=== PATIENT | male | born 1980 | race Caucasian/White ===

== ENCOUNTER 2017-09-18 15:02 | Emergency (ER) | payer SELFPAY ==
[2017-09-18] MEDS ORDERED: ONDANSETRON 4 MG TAB.RAPDIS PO ONE (15:39)
--- NOTE | 2017-09-18 15:43 | ER Document Report ---
ED Medical Screen (RME) - General Chief Complaint: Pain All Over Stated Complaint: VOMITING/PAIN Time Seen by Provider: 09/18/17 15:37 Mode of Arrival: Ambulatory Information source: Patient Notes: Pt is a 37 year old male who presents to the ER today for fatigue, nausea, diarrhea, and a "blood infection." Pt states that he has a belly button infection. He states that he just "can't handle it anymore." He thinks this all started with a dental infection. Pt is a poor historian and doesn't answer questions directly. TRAVEL OUTSIDE OF THE [place] IN LAST 30 DAYS: No - Related Data Allergies/Adverse Reactions: No Known Allergies Allergy (Verified 09/18/17 15:09) Past Medical History - General Information source: Patient Review of Systems - Review of Systems Gastrointestinal: See HPI Physical Exam - Vital signs Vitals: Temp Pulse Resp BP Pulse Ox 99.4 F 106 H 20 146/89 H 95 09/18/17 15:12 09/18/17 15:12 09/18/17 15:12 09/18/17 15:12 09/18/17 15:12 - Notes Notes: General: disheveled, fatigued appearing Course - Vital Signs Vital signs: Temp Pulse Resp BP Pulse Ox 99.4 F 106 H 20 146/89 H 95 09/18/17 15:12 09/18/17 15:12 09/18/17 15:12 09/18/17 15:12 09/18/17 15:12
[2017-09-18 17:44] LABS: ABSOLUTE BASOPHILS # (AUTO) 0.1 10^3/uL (0.0-0.2); ABSOLUTE LYMPHOCYTES (AUTO) 1.7 10^3/uL (0.5-4.7); ABSOLUTE MONOCYTES (AUTO) 1.1 10^3/uL (0.1-1.4); ABSOLUTE NEUT (AUTO) 13.1 10^3/uL (1.7-8.2); BASOPHILS % (AUTO) 0.3 % (0-2); EOSINOPHILS % (AUTO) 0.2 % (0-6); HEMATOCRIT 45.9 % (37.9-51.0); LYMPHOCYTES % (AUTO) 10.5 % (13-45); MEAN CORPUSCULAR HEMOGLOBIN 30.6 pg (27.0-33.4); MEAN CORPUSCULAR HGB CONC 34.8 g/dL (32.0-36.0); MEAN CORPUSCULAR VOLUME 88 fl (80-97); MONOCYTES % (AUTO) 7.1 % (3-13); PLATELET COUNT 207 10^3/uL (150-450); RED BLOOD COUNT 5.21 10^6/uL (4.35-5.55); SEGMENTED NEUTROPHILS % (AUTO) 81.9 % (42-78); TOTAL CELLS COUNTED % (AUTO) 100 %
[2017-09-18 17:55] LABS: ALANINE AMINOTRANSFERASE 33 U/L (21-72); ALBUMIN 4.5 g/dL (3.5-5.0); ALKALINE PHOSPHATASE 79 U/L (38-126); ANION GAP 15 (5-19); ASPARTATE AMINO TRANSFERASE 24 U/L (17-59); BILIRUBIN,DIRECT 0.4 mg/dL (0.0-0.4); BILIRUBIN,TOTAL 1.2 mg/dL (0.2-1.3); BLOOD UREA NITROGEN 14 mg/dL (7-20); CALCIUM 9.9 mg/dL (8.4-10.2); CARBON DIOXIDE 25 mmol/L (22-30); CHLORIDE 99 mmol/L (98-107); GLUCOSE 84 mg/dL (75-110); POTASSIUM 4.6 mmol/L (3.6-5.0); SODIUM 138.7 mmol/L (137-145); TOTAL PROTEIN 7.6 g/dL (6.3-8.2)
[2017-09-18] MEDS ORDERED: KETOROLAC TROMETHAMINE 60 MG/2 ML SDV IM ONE (18:46)
--- NOTE | 2017-09-18 18:55 | ER Document Report ---
ED General - General Chief Complaint: Pain All Over Stated Complaint: VOMITING/PAIN Time Seen by Provider: 09/18/17 15:37 Mode of Arrival: Ambulatory Information source: Patient Notes: 37-year-old male presents emergency department with multiple complaints. Patient states that he is having rhinorrhea, dry cough, nausea, vomiting, diarrhea, myalgias. He denies a history of sick contacts. Patient denies any medical problems. Patient also stating that he is cleaning some lint out of his bellybutton and noticed some blood. He thinks that his umbilicus is infected. Patient appears very disheveled in the emergency department. Patient denies any drug or alcohol use. TRAVEL OUTSIDE OF THE [place] IN LAST 30 DAYS: No - HPI Patient complains to provider of: rhinorrhea, cough, nausea, vomiting, diarrhea , myalgias Onset: This morning Onset/Duration: Gradual Quality of pain: Achy Severity: Mild Pain Level: 1 Associated symptoms: Chills Exacerbated by: Denies Relieved by: Denies Similar symptoms previously: No Recently seen / treated by doctor: No - Related Data Allergies/Adverse Reactions: No Known Allergies Allergy (Verified 09/18/17 15:09) Past Medical History - General Information source: Patient - Social History Smoking Status: Current Every Day Smoker Family History: Reviewed & Not Pertinent Review of Systems - Review of Systems Constitutional: Chills, Malaise EENT: Nose congestion, Nose discharge Cardiovascular: No symptoms reported Respiratory: Cough Gastrointestinal: Diarrhea, Nausea, Vomiting Genitourinary: No symptoms reported Musculoskeletal: No symptoms reported Skin: No symptoms reported Neurological/Psychological: No symptoms reported -: Yes All other systems reviewed and negative Physical Exam - Vital signs Vitals: Temp Pulse Resp BP Pulse Ox 99.4 F 106 H 20 146/89 H 95 09/18/17 15:12 09/18/17 15:12 09/18/17 15:12 09/18/17 15:12 09/18/17 15:12 Interpretation: Tachycardic - Notes Notes: PHYSICAL EXAMINATION: GENERAL: Well-appearing, well-nourished and in no acute distress. HEAD: Atraumatic, normocephalic. EYES: Pupils equal round and reactive to light, extraocular movements intact, sclera anicteric, conjunctiva are normal. ENT: Nares patent, oropharynx clear without exudates. Moist mucous membranes. NECK: Normal range of motion, supple without lymphadenopathy LUNGS: Breath sounds clear to auscultation bilaterally and equal. No wheezes rales or rhonchi. HEART: Regular rate and rhythm without murmurs ABDOMEN: Soft, nontender, nondistended abdomen. No guarding, no rebound. No masses appreciated. No blood appreciated in the umbilicus. No erythema, warmth , pain to the umbilicus area. Musculoskeletal: Normal range of motion, no pitting or edema. No cyanosis. NEUROLOGICAL: Cranial nerves grossly intact. Normal speech, normal gait. Normal sensory, motor exams PSYCH: Normal mood, normal affect. SKIN: Warm, Dry, normal turgor, no rashes or lesions noted. Course - Re-evaluation Re-evalutation: 09/18/17 21:14 Patient given toradol and zofran for his symptoms. Labs and imaging obtained. WBC is elevated. abd series is nomral. UA is significant for amphetamines, cocaine, marijuana. With all of the patient's symptoms, he likely has a viral illness. I will discharge him home with a prescription for zofran. Patient told to take the medication as directed, to follow up with his PCP this week, and to return for worsening symptoms. - Vital Signs Vital signs: Temp Pulse Resp BP Pulse Ox 99.4 F 106 H 20 146/89 H 95 09/18/17 15:12 09/18/17 15:12 09/18/17 15:12 09/18/17 15:12 09/18/17 15:12 - Laboratory Result Diagrams: 09/18/17 17:01 09/18/17 17:01 Laboratory results interpreted by me: 09/18/17 09/18/17 17:01 17:20 WBC 16.0 H Seg Neutrophils % 81.9 H Lymphocytes % 10.5 L Absolute Neutrophils 13.1 H Urine Protein 30 H Urine Urobilinogen 4.0 H - Diagnostic Test Radiology reviewed: Image reviewed, Reports reviewed Discharge - Discharge Clinical Impression: Viral illness, Drug abuse Condition: Stable Disposition: HOME, SELF-CARE Instructions: Viral Syndrome ([facility]) Prescriptions: Ondansetron [Zofran Odt 4 mg Tablet] 1 - 2 tab PO Q4H PRN #15 tab.rapdis PRN Reason: For Nausea/Vomiting Referrals: ESCOBAR DEAN MD [ACTIVE STAFF] - Follow up as needed
--- NOTE | 2017-09-18 19:26 | RADIOLOGY REPORT (SQ) ---
EXAM DESCRIPTION: ACUTE ABDOMEN SERIES COMPLETED DATE/TIME: 09/18/2017 7:04 pm REASON FOR STUDY: abdominal pain COMPARISON: None. NUMBER OF VIEWS: Three views. TECHNIQUE: Frontal chest, supine abdomen and upright/decubitus abdomen radiographic images acquired. LIMITATIONS: None. FINDINGS: CHEST: Lungs clear of infiltrates. FREE AIR: None. No abnormal gas collections. BOWEL GAS PATTERN: Nonobstructive pattern. No dilated loops or air fluid levels. CALCIFICATIONS: No suspicious calcifications. HARDWARE: None in the abdomen. SOFT TISSUES: No gross mass or suggestion of organomegaly. BONES: No acute fracture. No worrisome bone lesions. OTHER: No other significant finding. IMPRESSION: Nonobstructive pattern. TECHNICAL DOCUMENTATION: JOB ID: [id number] [employer]- All Rights Reserved Reading location - IP/workstation name: [email or web address]
[2017-09-18 19:50] LABS: APPEARANCE,URINE SLIGHTLY-CLOUDY; BILIRUBIN,URINE NEGATIVE (NEGATIVE); COLOR,URINE AMBER; GLUCOSE, URINE NEGATIVE (NEGATIVE); KETONES,URINE NEGATIVE (NEGATIVE); LEUKOCYTE ESTERASE,URINE NEGATIVE (NEGATIVE); NITRITE,URINE NEGATIVE (NEGATIVE); PROTEIN,URINE 30 mg/dL (NEGATIVE); URINE SPECIFIC GRAVITY 1.029
[2017-09-18 19:59] LABS: URINE AMPHETAMINES SCREEN UNCONFIRMED POSITIVE; URINE BARBITURATES SCREEN NEGATIVE; URINE BENZODIAZEPINES SCREEN NEGATIVE; URINE COCAINE SCREEN UNCONFIRMED POSITIVE; URINE MARIJUANA (THC) SCREEN UNCONFIRMED POSITIVE; URINE METHADONE SCREEN NEGATIVE; URINE PHENCYCLIDINE SCREEN NEGATIVE
[2017-09-18 20:43] LABS: A TYPE INFLUENZA AG NEGATIVE (NEGATIVE); B INFLUENZA AG NEGATIVE (NEGATIVE)
[2017-09-18 21:40] VITALS: BP 117/66
== END 2017-09-18 21:45 | disposition home or self-care (01) ==
LOC: ER 15:02
DX: B34.9 Viral infection, unspecified (principal); F15.10 Other stimulant abuse, uncomplicated; F14.10 Cocaine abuse, uncomplicated; F12.10 Cannabis abuse, uncomplicated; J34.89 Other specified disorders of nose and nasal sinuses; R05 Cough; R11.2 Nausea with vomiting, unspecified; R19.7 Diarrhea, unspecified; M79.1 Myalgia; D72.829 Elevated white blood cell count, unspecified; F17.200 Nicotine dependence, unspecified, uncomplicated
CPT/HCPCS: 99283; 96372; 36415; 85025; 80053; 81001; 80307; 87804; 74022; J1885; S0119

== ENCOUNTER 2017-12-27 14:49 | Emergency (ER) | payer SELFPAY ==
[2017-12-27] MEDS ORDERED: ACETAMINOPHEN 325 MG TABLET PO ONE (15:46)
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
[2017-12-27] MEDS ORDERED: DIPH/PERTUSS(ACELL)/TETANUS VAC/PF 0.5 ML SYR (>=10YO) IM ONE (16:41)
[2017-12-27 17:45] VITALS: BP 141/87
== END 2017-12-27 17:43 | disposition home or self-care (01) ==
LOC: ER 14:49
DX: S09.90XA Unspecified injury of head, initial encounter (principal); Y04.0XXA Assault by unarmed brawl or fight, initial encounter; Y93.9 Activity, unspecified; Y92.9 Unspecified place or not applicable; M79.672 Pain in left foot
CPT/HCPCS: 70450; 90471; 90715; 99284